=== PATIENT | male | born 1960 | race Caucasian/White ===

== ENCOUNTER 2018-09-14 19:08 | Emergency (ER) | payer MEDICAID ==
[2018-09-14] MEDS ORDERED: LORazepam 2 MG/ML INJ IVP PRN (20:01)
[2018-09-14] MEDS ORDERED: LORazepam 1 MG TAB PO PRN (20:01)
--- NOTE | 2018-09-14 20:07 | EDPHY ---
H & P Time Seen by Provider: 09/14/18 19:31 HPI/ROS: CHIEF COMPLAINT: Seizure HISTORY OF PRESENT ILLNESS: Patient is a 58-year-old male with a history of coronary artery disease and [place] who presents emergency department after having seizure. The patient states he drinks beer regularly. He had 4 beers today. He was at lazy dog sitting at the bar when he just ordered food. He subsequently had a reported seizure per EM S. The patient does not recall the event. Patient now feels better. He has not had previous alcohol withdrawal seizure. He denies previous alcohol withdrawal. He has no headache or neck pain. No focal weakness or numbness. No chest pain or shortness of breath. REVIEW OF SYSTEMS: 10 systems were reveiwed and are negative with the exception of the elements mentioned in the history of present illness. Past Medical/Surgical History: Includes coronary Artery disease Social history: The patient drinks alcohol. He occasionally smokes THC. Smoking Status: Never smoked Physical Exam: Vitals noted GENERAL: No acute distress, alert. HEENT: Eyes normal to inspection, normal pharynx, no signs of dehydration. NECK: Normal, supple. RESPIRATORY: Clear to auscultation bilaterally, no rales, rhonchi or wheezing. CVS: Regular rate and rhythm, no rubs, murmurs, or gallops. ABDOMEN: Soft, nontender, nondistended, no organomegaly. BACK: Normal to inspection, no CVA tenderness. SKIN: Normal color, no rash, warm, dry. No pallor. EXTREMITIES: No pedal edema, no calf tenderness, no Homans sign or cords, no joint swelling. NEURO/PSYCH: Higher functions: Alert and Oriented x3. Normal speech and cognition. Normal mood and affect. Cranial nerves: Normal as tested. Cerebellar: Normal as tested. Good finger to nose, good [id number], normal gait. Peripheral exam: Normal motor exam. Normal sensation. Normal reflexes. Patient has slight hand tremor in tongue wag Constitutional: Initial Vital Signs Temperature (C) 36.6 C 09/14/18 19:13 Heart Rate 101 H 09/14/18 19:13 Respiratory Rate 18 09/14/18 19:13 Blood Pressure 175/107 H 09/14/18 19:13 O2 Sat (%) 95 09/14/18 19:13 O2 Delivery Mode Room Air Allergies/Adverse Reactions: No Known Allergies Allergy (Unverified 02/28/18 06:02) Home Medications: Medication Instructions Recorded Aspirin [Aspirin 81mg (*)] 81 mg PO DAILY@12 02/28/18 Atorvastatin Calcium [Lipitor 40 40 mg PO DAILY #30 tab 03/01/18 mg (*)] Carvedilol [Coreg (*)] 12.5 mg PO BIDMEAL #60 tab 03/01/18 Lisinopril [Zestril 2.5 mg (*)] 2.5 mg PO DAILY #30 tab 03/01/18 Pantoprazole Sodium [Protonix 40mg 40 mg PO DAILY #30 tab 03/01/18 (*)] Medical Decision Making - Diagnostics Imaging Results: Imaging Impressions Head CT 09/14/18 20:03 Impression: No acute intracranial findings. If symptoms persist and clinical suspicion warrants, consider MRI. Findings discussed with ELIZABETH Laboy MELISSA 09/14/2018 at 20:27. ED Course/Re-evaluation: In the emergency department I discussed possible etiologies with the patient. I answered all of his questions. Alcohol withdrawal protocol was followed. Patient's white count is 10.9. Hematocrit is 44. Patient's initial sodium was low 134. Potassium is 3.3. Chloride was 95, carbon dioxide was low at 16, anion gap was 23 %period% creatinine was 0.9. Patient's i-STAT showed a low potassium at 3.0. Because of this patient was given potassium chloride 40 mEq orally. Patient received a L of normal saline. Patient had repeat chemistry panel ordered. Sodium was 133. Potassium was 3.7. Anion gap was 10. Rechecked the patient. He was doing well. He had no complaints. He was offered discharge to the [facility]. He refused. Differential Diagnosis: My differential includes but not limited to alcohol withdrawal seizure, seizure , malignancy, mass, ischemic CVA, hemorrhagic CVA, ACS, acute [place], electrolyte abnormality, sugar abnormality - Data Points Laboratory Results: Laboratory Results 09/14/18 19:12 09/14/18 21:45 09/14/18 09/14/18 09/14/18 21:45 19:18 19:16 WBC RBC Hgb POC Hgb 17.0 gm/dL gm/dL (13.7-17.5) Hct POC Hct 50 % % (40-51) MCV MCH MCHC RDW Plt Count MPV Neut % (Auto) Lymph % (Auto) Tompkins % (Auto) Eos % (Auto) Baso % (Auto) Nucleat RBC Rel Count Absolute Neuts (auto) Absolute Lymphs (auto) Absolute Monos (auto) Absolute Eos (auto) Absolute Basos (auto) Absolute Nucleated RBC Immature Gran % Immature Gran # RBC/WBC/PLT Morphology Platelet Estimate POC Sodium 136 mEq/L mEq/L (135-145) Sodium 133 mEq/L L mEq/L (135-145) POC Potassium 3.0 mEq/L L mEq/L (3.3-5.0) Potassium 3.7 mEq/L mEq/L (3.3-5.0) POC Chloride 98 mEq/L mEq/L (97-110) Chloride 101 mEq/L mEq/L (97-110) Carbon Dioxide 22 mEq/l mEq/l (22-31) Anion Gap 10 mEq/L mEq/L (6-14) POC BUN < 3 mg/dL L mg/dL (7-23) BUN 5 mg/dL L mg/dL (7-23) Creatinine 0.6 mg/dL L mg/dL (0.7-1.3) POC Creatinine 0.8 mg/dL mg/dL (0.7-1.3) Estimated GFR > 60 Glucose 124 mg/dL H mg/dL (70-100) POC Glucose 127 mg/dL H mg/dL (70-100) Calcium 8.6 mg/dL mg/dL (8.5-10.4) POC Troponin I 0.01 ng/mL ng/mL (0.00-0.08) 09/14/18 09/14/18 19:12 19:12 WBC 10.96 10^3/uL H 10^3/uL (3.80-9.50) RBC 4.62 10^6/uL 10^6/uL (4.40-6.38) Hgb 15.9 g/dL g/dL (13.7-17.5) POC Hgb Hct 44.5 % % (40.0-51.0) POC Hct MCV 96.3 fL fL (81.5-99.8) MCH 34.4 pg H pg (27.9-34.1) MCHC 35.7 g/dL g/dL (32.4-36.7) RDW 12.7 % % (11.5-15.2) Plt Count 161 10^3/uL 10^3/uL (150-400) MPV 11.3 fL fL (8.7-11.7) Neut % (Auto) 56.2 % % (39.3-74.2) Lymph % (Auto) 25.8 % % (15.0-45.0) Tompkins % (Auto) 14.2 % H % (4.5-13.0) Eos % (Auto) 0.8 % % (0.6-7.6) Baso % (Auto) 0.7 % % (0.3-1.7) Nucleat RBC Rel Count 0.0 % % (0.0-0.2) Absolute Neuts (auto) 6.16 10^3/uL 10^3/uL (1.70-6.50) Absolute Lymphs (auto) 2.83 10^3/uL 10^3/uL (1.00-3.00) Absolute Monos (auto) 1.56 10^3/uL H 10^3/uL (0.30-0.80) Absolute Eos (auto) 0.09 10^3/uL 10^3/uL (0.03-0.40) Absolute Basos (auto) 0.08 10^3/uL 10^3/uL (0.02-0.10) Absolute Nucleated RBC 0.00 10^3/uL 10^3/uL (0-0.01) Immature Gran % 2.3 % H % (0.0-1.1) Immature Gran # 0.25 10^3/uL H 10^3/uL (0.00-0.10) RBC/WBC/PLT Morphology TNP Platelet Estimate TNP POC Sodium Sodium 134 mEq/L L mEq/L (135-145) POC Potassium Potassium 3.3 mEq/L mEq/L (3.3-5.0) POC Chloride Chloride 95 mEq/L L mEq/L (97-110) Carbon Dioxide 16 mEq/l L mEq/l (22-31) Anion Gap 23 mEq/L H mEq/L (6-14) POC BUN BUN 5 mg/dL L mg/dL (7-23) Creatinine 0.9 mg/dL mg/dL (0.7-1.3) POC Creatinine Estimated GFR > 60 Glucose 122 mg/dL H mg/dL (70-100) POC Glucose Calcium 9.4 mg/dL mg/dL (8.5-10.4) POC Troponin I Medications Given: Lorazepam (Ativan Injection) 0 mg IVP Q1H PRN; Protocol PRN Reason: Alcohol Withdrawal w/IV access Stop: 09/15/18 08:01 Last Admin: 09/14/18 20:22 Dose: 2 mg Discontinued Medications Sodium Chloride (Ns) 1,000 mls @ 0 mls/hr IV EDNOW ONE; Wide Open PRN Reason: Protocol Stop: 09/14/18 20:45 Last Admin: 09/14/18 20:49 Dose: 1,000 mls Potassium Chloride (Potassium Chloride Oral Liquid) 40 meq PO EDNOW ONE Stop: 09/14/18 20:46 Last Admin: 09/14/18 20:49 Dose: 40 meq Point of Care Test Results: Chemistry 09/14/18 09/14/18 19:18 19:16 POC Sodium 136 mEq/L mEq/L (135-145) POC Potassium 3.0 mEq/L L mEq/L (3.3-5.0) POC Chloride 98 mEq/L mEq/L (97-110) POC BUN < 3 mg/dL L mg/dL (7-23) POC Creatinine 0.8 mg/dL mg/dL (0.7-1.3) POC Glucose 127 mg/dL H mg/dL (70-100) POC Troponin I 0.01 ng/mL ng/mL (0.00-0.08) ISTAT H&H 09/14/18 19:18 POC Hgb 17.0 gm/dL gm/dL (13.7-17.5) POC Hct 50 % % (40-51) Departure - Departure Disposition: Home, Routine, Self-Care Clinical Impression: Seizure Condition: Good Instructions: New-Onset Seizure in Adults (ED) Additional Instructions: Return with increasing headache, repeat seizure, weakness, numbness, shaking or any other concerns. Slowly decrease your alcohol intake. Referrals: [facility],. [Clinic] - As per Instructions Alfie Barnett, [Medical Doctor] - 5-7 days, if not improved
[2018-09-14 20:11] LABS: PLATELET COUNT 161 10^3/uL (150-400)
[2018-09-14] MEDS ORDERED: NS 1,000 ML IV ONE (20:44)
[2018-09-14] MEDS ORDERED: POTASSIUM CL 20 MEQ/15 ML UDCUP PO ONE (20:45)
--- NOTE | 2018-09-14 22:42 | CPEKG ---
Test Reason : OPEN Blood Pressure : / mmHG Vent. Rate : 120 BPM Atrial Rate : 120 BPM P-R Int : 134 ms QRS Dur : 124 ms QT Int : 345 ms P-R-T Axes : -11 -11 -17 degrees QTc Int : 488 ms Sinus tachycardia Nonspecific intraventricular conduction delay Borderline T abnormalities, diffuse leads Confirmed by Aide Lazcano ([id number] on 09/14/2018 10:41:37 PM Referred By: Confirmed By:Aide Lazcano
[2018-09-14 22:43] VITALS: BP 134/70
== END 2018-09-14 22:41 | disposition home or self-care (01) ==
LOC: EDUNIT#
DX: R56.9 Unspecified convulsions (principal); E86.9 Volume depletion, unspecified; I25.10 Atherosclerotic heart disease of native coronary artery without angina pectoris; I25.2 Old myocardial infarction
CPT/HCPCS: 82435-PO; 82565-PO; 82947-PO; 84132-PO; 84295-PO; 84484-PO; 84520-PO; 85014-PO; 96374; J2060